=== PATIENT | female | born 1935 | race Caucasian/White ===

== ENCOUNTER → 2017-03-10 | Outpatient (CLI) | payer MEDICARE ==
[~2017-03-10] MED LIST: ADULT LOW DOSE81 MG; CALTRATE 600 +1 TA1; MULTI-DAY VITA1 EACH; PRAVASTATIN20 MG PO
[2017-03-10 10:12] LABS: HEMOGLOBIN 11.4 g/dL (12.2-16.2); LYMPH # 1.3 K/mm3 (0.7-4.5)
--- NOTE | 2017-03-10 10:13 | RADIOLOGY REPORT PS360 ---
BONE DENSITOMETRY(HIP:LT SPINE HISTORY: OSTEOPOROSIS ORDERING PHYSICIAN: DIANA CHAVIS PATIENT AGE: 82 years COMPARISON: 03/04/2016 FINDINGS: The BMD measured at the right femoral neck is 0.661 g/cm squared with a T score of -2.7. This is considered osteoporotic according to the World Health Organization criteria. Fracture risk is high. Treatment should be initiated not already started. The total density of the hips has increased by 3% and the total density of the lumbar spine has increased by 4% compared to the previous exam. IMPRESSION: Osteoporosis. Recommend follow-up exam February 2018
[2017-03-10 10:30] LABS: URINE BILIRUBIN - DIPSTICK NEGATIVE (NEG); URINE BLOOD 1+ (NEG)
[2017-03-10 11:40] LABS: URINE SQUAMOUS CELLS OCC #/hpf (0-5)
[2017-03-10 11:41] LABS: URINE RENAL CELLS OCC #/HPF
[2017-03-10 13:34] LABS: BUN 15 mg/dL (7-18)
[2017-03-10 13:35] LABS: GFR (ESTIMATED) 60 ML/MIN (59-)
[2017-03-11 06:37] LABS: Vitamin D, 25-Hydroxy 53.4 ng/mL (30.0-100.0)
[2017-03-12 14:40] LABS: Tandem-R Ostase 9.4 ug/L (.)
[2017-03-12 16:36] LABS: Osteocalcin 18.7 ng/mL (.)
[2017-03-14 16:37] LABS: N-Telopeptide 11.9 (6.2-19.0)
[2017-03-14 19:20] LABS: MISCELLANEOUS TEST N-TELOPEPTIDE
== END ==
LOC: LAB 08:38 → RAD 08:38
PROVIDERS: Internal Medicine Nephrology
DX: M81.0 Age-related osteoporosis without current pathological fracture (principal); N28.9 Disorder of kidney and ureter, unspecified